=== PATIENT | female | born 2000 | race Caucasian/White ===

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

== ENCOUNTER 2019-03-05 04:53 | Emergency (ER) | payer OTHER ==
[~2019-03-05] VITALS: Ht 160 cm; Wt 104.5 kg
[~2019-03-05 04:53] MED LIST changes: +AEROECLIPSE NEB1 DEV; +ALBUTEROL1.25 MG/3 IH; +RT ADVAIR 128 DISKUS IH
[2019-03-05 04:58] VITALS: TEMP 96.7
[2019-03-05] MEDS ORDERED: IPRATROPIUM BROM3 M1 IH (05:11)
[2019-03-05] MEDS ORDERED: VENTOLIN0.09 MG IH (05:11)
[2019-03-05] MEDS ORDERED: PREDNISONE20 MG PO (05:11)
[2019-03-05 06:30] VITALS: BP 121/77; PULSE 80
== END 2019-03-05 06:30 | disposition home or self-care (01) ==
LOC: COL.ER 04:53
DX: J45.909 Unspecified asthma, uncomplicated (principal); Z79.51 Long term (current) use of inhaled steroids
CPT/HCPCS: J7512

== ENCOUNTER 2020-08-02 23:03 | Emergency (ER) | payer BC ==
[~2020-08-02] VITALS: Ht 160 cm; Wt 117.3 kg
[~2020-08-02 23:03] MED LIST changes: +IPRATROPIUM BROM3 M1 IH
[2020-08-02 23:07] VITALS: TEMP 98.5
[2020-08-02] MEDS ORDERED: PREDNISONE20 MG PO (23:30)
[2020-08-03 01:03] LABS: HEMATOCRIT 43.6 % (37.0-47.0); HEMOGLOBIN 14.8 g/dl (12.5-16.0); MEAN CELL VOLUME 82 fl (80.0-100.0); MEAN CORPUSCULAR HEMOGLOBIN 28 pg (27.0-31.0); MEAN CORPUSCULAR HGB CONC 34 g/dl (33.0-37.0); MEAN PLATELET VOLUME 10.3 fl (7.4-10.4); PLATELET COUNT 343 K/mm3 (130-400); RED BLOOD COUNT 5.33 M/mm3 (4.10-5.30); REDCELL DISTRIBUTION WIDTH-CV 13.1 % (11.5-14.5)
[2020-08-03 01:09] LABS: CREATININE, serum 0.73 (0.52-1.25); POTASSIUM 3.8 mmol/L (3.4-5.0)
[2020-08-03 01:16] LABS: BAND 2 % (0-10); EOSINOPHIL 1 % (0-4); LYMPHOCYTE 35 % (20.0-51.0); NEUTROPHILS 57 % (42.0-75.2)
[2020-08-03 01:17] LABS: PLATELET ESTIMATE NORMAL (NORMAL)
[2020-08-03 01:53] VITALS: BP 128/79; PULSE 81
== END 2020-08-03 01:55 | disposition home or self-care (01) ==
LOC: COL.ER 23:03
PROVIDERS: Emergency Medicine
DX: J45.901 Unspecified asthma with (acute) exacerbation (principal); Z86.16 Personal history of COVID-19; Z79.52 Long term (current) use of systemic steroids
CPT/HCPCS: J7030; J7512

== ENCOUNTER 2020-09-11 18:12 | Emergency (ER) | payer OTHER ==
[~2020-09-11] VITALS: Ht 160 cm; Wt 109.1 kg
[2020-09-11 18:21] VITALS: TEMP 98.3
[2020-09-11] MEDS ORDERED: PEPCID 20MG TAB20 MG PO (19:01)
[2020-09-11] MEDS ORDERED: PREDNISONE20 MG PO (19:01)
[2020-09-11] MEDS ORDERED: EPIPEN 2-PAK1 MG/ML IM (19:01)
[2020-09-11 20:00] VITALS: BP 129/80; PULSE 98
[2021-04-06] MEDS ORDERED: PREDNISONE20 MG PO (00:48)
== END 2020-09-11 20:00 | disposition home or self-care (01) ==
LOC: COL.ER 18:12
DX: T78.40XA Allergy, unspecified, initial encounter (principal); J45.909 Unspecified asthma, uncomplicated; Z79.52 Long term (current) use of systemic steroids
CPT/HCPCS: J1200; J2930; J7120

== ENCOUNTER 2021-02-12 15:00 | Emergency (ER) | payer OTHER ==
[~2021-02-12] VITALS: Ht 160 cm; Wt 122.7 kg
[~2021-02-12 15:00] MED LIST changes: +EPIPEN 2-PAK1 MG/ML IM; +PEPCID 20MG TAB20 MG PO
[2021-02-12 15:39] VITALS: TEMP 98.3
[2021-02-12 16:07] LABS: STREP SCREEN NEGATIVE
[2021-02-12 16:43] LABS: BASO % 0.2 % (0.0-2.0); GRAN # 7.8 (1.4-6.5); GRAN % 64.2 % (42.2-75.2); HEMATOCRIT 41.4 % (37.0-47.0); HEMOGLOBIN 13.9 g/dl (12.5-16.0); LYMPH # 3.4 (1.2-3.4); LYMPH % 27.8 % (20.0-51.0); MEAN CELL VOLUME 81 fl (80.0-100.0); MEAN CORPUSCULAR HEMOGLOBIN 27 pg (27.0-31.0); MEAN CORPUSCULAR HGB CONC 34 g/dl (33.0-37.0); MEAN PLATELET VOLUME 10.8 fl (7.4-10.4); MONO # 0.9 (0.1-0.6); MONO % 7.4 % (1.7-9.3); PLATELET COUNT 311 K/mm3 (130-400); REDCELL DISTRIBUTION WIDTH-CV 13.2 % (11.5-14.5)
[2021-02-12 16:57] LABS: ALBUMIN 4.2 gm/dL (3.5-5.0); BILIRUBIN,TOTAL 0.3 mg/dL (0.0-1.0); CALCIUM 9.4 mg/dL (8.4-10.2); CREATININE, serum 0.87 (0.52-1.25); POTASSIUM 3.8 mmol/L (3.4-5.0); TOTAL PROTEIN 7.3 gm/dL (6.4-8.2)
[2021-02-12] MEDS ORDERED: ZOFRAN ODT4 MG PO (17:28)
[2021-02-12 17:40] VITALS: BP 145/61; PULSE 88
[2021-04-06] MEDS ORDERED: PREDNISONE20 MG PO (00:48)
== END 2021-02-12 17:47 | disposition home or self-care (01) ==
LOC: COL.ER 15:00
PROVIDERS: Personal Emergency Response Attendant; Physician Assistant
DX: J02.9 Acute pharyngitis, unspecified (principal); R11.2 Nausea with vomiting, unspecified; M79.10 Myalgia, unspecified site; D72.829 Elevated white blood cell count, unspecified; Z20.822 Contact with and (suspected) exposure to COVID-19
CPT/HCPCS: J2405; J7030

== ENCOUNTER 2021-08-20 21:29 | Emergency (ER) | payer OTHER ==
[~2021-08-20] VITALS: Ht 160 cm; Wt 115.9 kg
[~2021-08-20 21:29] MED LIST changes: +ZOFRAN ODT4 MG PO
[2021-08-20 21:33] VITALS: TEMP 98
[2021-08-20 23:12] VITALS: BP 141/74; PULSE 76
== END 2021-08-20 22:52 | disposition home or self-care (01) ==
LOC: COL.ER 21:29
DX: R05.9 Cough, unspecified (principal)